=== PATIENT | female | born 2000 | race Caucasian/White ===

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

== ENCOUNTER → 2022-08-17 10:05 | Outpatient (BNVA) | payer MEDICAID, SELFPAY | PROVIDERS: PCP Nurse Practitioner Family; Visit Provider Nurse Practitioner Family | DX: J02.9 Acute pharyngitis, unspecified (principal) | CPT/HCPCS: 87071; 87880 ==

== ENCOUNTER → 2022-10-19 08:13 | Outpatient (BNVA) | payer MEDICAID, SELFPAY | PROVIDERS: PCP Nurse Practitioner Family; Visit Provider Podiatrist Foot & Ankle Surgery | DX: M79.672 Pain in left foot (principal); S93.622A Sprain of tarsometatarsal ligament of left foot, initial encounter; X58.XXXA Exposure to other specified factors, initial encounter | CPT/HCPCS: 73630 ==

== ENCOUNTER 2022-12-08 07:24 | Outpatient (CLI) | payer MEDICAID, SELFPAY ==
--- NOTE | 2022-12-08 08:00 | MR_ITS ---
WS: [id number] MRI LEFT FOOT without CONTRAST. COMPARISON: 07/12/2021 Multiplanar, multisequence imaging is performed without contrast. Significant improvement in appearance of the midfoot and the Lisfranc ligament since the prior examin ation. The interosseous and plantar component of the ligament best seen on the axial imaging. The shravan vargas band is best seen on the coronal sequence. There is no signal abnormality remaining within the li gament. No widening of the proximal first and second metatarsals. There is normal alignment in the mi dfoot. No fractures or marrow edema. No residual soft tissue edema. Small cyst just distal to the anterior calcaneal process and medial to the cuboid measures 5 x 8 mm. This may be a small ganglion. MR/MR foot LT wo con* [id number] IMPRESSION: 1. No residual marrow edema or edema within the Lisfranc ligament. 2. 3 components of the Lisfranc ligament are identified and appear normal by M RI. 3. Possible small ganglion measuring 5 x 8 mm distal to the anterior calcaneal process and medial to the cuboid.
== END 2022-12-08 07:25 | disposition home or self-care (01) ==
LOC: RAD 07:28
PROVIDERS: PCP Nurse Practitioner Family; Visit Provider Podiatrist Foot & Ankle Surgery
DX: M79.672 Pain in left foot (principal)
CPT/HCPCS: 73718

== ENCOUNTER 2023-01-31 06:00 | Outpatient (RCR) | payer MEDICAID, SELFPAY | END 2023-03-01 23:59 | disposition home or self-care (01) | LOC: SPT 06:00 | PROVIDERS: Visit Provider Podiatrist Foot & Ankle Surgery | DX: S93.622D Sprain of tarsometatarsal ligament of left foot, subsequent encounter (principal); X58.XXXD Exposure to other specified factors, subsequent encounter | CPT/HCPCS: 97035; 97110; 97140; 97161 ==

== ENCOUNTER 2023-03-02 06:00 | Outpatient (RCR) | payer MEDICAID, SELFPAY | END 2023-03-31 23:59 | disposition home or self-care (01) | LOC: SPT 06:00 | PROVIDERS: Visit Provider Podiatrist Foot & Ankle Surgery | DX: S93.622D Sprain of tarsometatarsal ligament of left foot, subsequent encounter (principal); X58.XXXD Exposure to other specified factors, subsequent encounter | CPT/HCPCS: 97110; 97140 ==

== ENCOUNTER → 2023-05-04 11:27 | Outpatient (BNVA) | payer MEDICAID, SELFPAY | PROVIDERS: Visit Provider Podiatrist Foot & Ankle Surgery | DX: S93.622D Sprain of tarsometatarsal ligament of left foot, subsequent encounter; X58.XXXD Exposure to other specified factors, subsequent encounter; M21.612 Bunion of left foot | CPT/HCPCS: 73630 ==

== ENCOUNTER 2023-05-19 08:36 | Day surgery (SDC) | payer MEDICAID, SELFPAY ==
[2023-05-19] VITALS (12 sets, daily range): BP systolic 85–122; BP diastolic 44–73; PULSE 57–83; RESP 14–16; TEMP 36.1–36.7; O2SAT 95–100
--- NOTE | 2023-05-19 | XR_ITS ---
WS: [id number] EXAMINATION: XR foot LT 2V [id number] REASON FOR EXAM: CHAIM PICS COMPARISON: 05/04/2023 ORDER DATE: 05/19/2023 12:00 AM TECHNIQUE: 3 views of the left foot were obtained. X-RAY FINDINGS: The C-arm views were obtained for intraoperative purposes.. IMPRESSION: As above
[2023-05-19] MEDS: CELEcoxib 200 mg Capsule 400 MG PO (09:31)
[2023-05-19] MEDS: sodium chloride 0.9% 1,000 ML 30 ML IV (09:31)
[2023-05-19] MEDS: gabapentin 300 mg Capsule PO (09:32)
[2023-05-19 09:40] LABS: OR HCG Qualitative Urine Negative (Negative)
--- NOTE | 2023-05-19 09:41 | W.PM.OPSUD ---
Surgery/Procedure H&P Update DATE OF PROCEDURE: May 19, 2023 DATE H&P PERFORMED: 05/04/23 H&P UPDATE INFORMATION: I have reviewed H&P completed within last 30 days, No changes to prior documentation and H&P is in [facility] [place] on date indicated CHANGES TO PREVIOUS DOCUMENTATION: none PREOP DIAGNOSIS: Left bunion. Left Lisfranc injury. PLANNED PROCEDURE: Operation Date: 05/19/23 10:10 Proposed Procedures p Bunionectomy Lapidus(Left) - Zach Blanton DPM s ?left Lapidus bunionectomy, and?Open reduction internal fixation left second tarsometatarsal joint, 39118, 33954, M21.612, S93.622D(Left) - Zach Blanton DPM
--- NOTE | 2023-05-19 10:00 | ANES.PREANE2 ---
Pre-Anesthetic Assessment Height/Weight: Height 1.55 m Weight 73.482 kg Temp Pulse Resp BP Pulse Ox O2 Del Method 98.1 F 70 16 122/63 98 Room Air 05/19/23 08:58 05/19/23 08:58 05/19/23 08:58 05/19/23 08:58 05/19/23 08:58 05/19/23 09:01 Preop Diagnosis: Left bunion. Left Lisfranc injury. Operation Date: 05/19/23 10:10 Proposed Procedures p Bunionectomy Lapidus(Left) - Zach Blanton DPM s ?left Lapidus bunionectomy, and?Open reduction internal fixation left second tarsometatarsal joint, 22065, 15651, M21.612, S93.622D(Left) - Zach Blanton DPM Familial anesthetic complications: none Was Beta Troy taken within 24 hours: N/A Was Clonidine taken within 24 hours: N/A Last intake: Intake Last Liquid Date 05/18/23 Last Liquid Time 22:00 Last Solid Date 05/18/23 Last Solid Time 19:00 Social No alcohol and No tobacco Exam alert, oriented x 3, clear to auscultation bilaterally and regular rate & rhythm Airway Submandibular: within normal limits Cervical ROM: within normal limits Mallampati: Class II Dentition: full History/ROS No significant history except as noted Anesthetic Plan ASA status: 1 Anesthesia: Choice Medications/Allergies Home Medications Medication Instructions Recorded Confirmed Last Taken Type epinephrine 0.3 mg/0.3 mL 0.3 mg (0.3 mL) IM Q4H PRN 02/08/23 05/18/23 Unknown Rx injection, auto-injector (EpiPen anaphylaxis #2 ea 2-Med) Allergies Allergy/AdvReac Type Severity Reaction Status Date / Time Sulfa (Sulfonamide Allergy Severe ALGY-Hives Verified 05/18/23 11:10 Antibiotics) shellfish derived Allergy ALGY-Anaphy Verified 05/18/23 11:10 laxis Current Medications Generic Name Dose Route Start Last Admin Trade Name Freq PRN Reason Stop Dose Admin Sodium Chloride 1,000 mls @ 30 mls/hr 05/19/23 08:45 05/19/23 09:31 Sodium Chloride 0.9% IV 05/20/23 08:44 30 mls/hr .Q24H KIM Administration PFSH Anesthesia Social History Smoking and tobacco status: never smoked Second hand smoke exposure: No Smoking risk assessment/counseling performed?: No Alcohol intake: never Desire information about alcohol rehabilitation?: No Counseling given: No Substance/Drug Use: never Desire information about substance/drug rehabilitation?: No Counseling given: No Adopted: No Highest education level completed: 11th Grade Pets and animals: No Female Reproductive History Date of last menstrual period: 05/07/23 Data Anesthesia Cardiac Studies: No Data to Display
[2023-05-19] MEDS: ceFAZolin 2,000 MG in sodium chloride 0.9% (plus) 50 ML 100 MG IV (10:39)
[2023-05-19] MEDS: BUPivacaine liposome 13.3 mg/mL SDV 10 mL 266 MG INJECTION (10:55)
[2023-05-19] MEDS: BUPivacaine 0.5% INJ 30 mL 20 ML INJECTION (10:55)
--- NOTE | 2023-05-19 12:03 | PM.OP ---
Operative Report Date of procedure: May 19, 2023 Pre-op diagnosis: Left bunion deformity. Left Lisfranc injury. Post-op diagnosis: Left bunion deformity. Post-op findings: Stability appreciated intraoperatively with loading and range of motion at the left second tarsometatarsal joint. Procedure done: Left Lapidus bunionectomy. CPT code 89253 Implants: [place] 3 mm headed screw [place] primary Lapidus arthrodesis plate with 3.5 mm locking and nonlocking screws 3-0 Vicryl, 4-0 Vicryl, 4-0 nylon 10 cc of Exparel, 10 cc of Marcaine 0.5% plain Specimens removed/disposition: none Pathology: None Surgeon: Zach Blanton D.P.M. Computer Processing Scheduler: [place] Estimated blood loss: 5 34 IV fluids: 0 Urine output: 0 Complications: None Brief History: Planning on first and possible second tarsometatarsal joint arthrodesis.? We will start with bunion correction with Lapidus bunionectomy and then assess instability at the second metatarsal and cuneiform joint.? May require ORIF versus arthrodesis.? I reviewed at length with the patient, the risks, potential complications, benefits, alternatives, expectations, and typical outcomes associated with the surgery. The risks and potential complications were explained in detail, including but not limited to infection, wound dehiscence or soft tissue complications, bleeding and hematoma, chronic edema, neuritis or nerve damage producing numbness or chronic pain, CRPS, failure to relieve pain or worsening pain, thick / painful / unsightly scar, limited motion / stiffness, malposition, delayed union, malunion, or nonunion, fracture, reaction to implants, anesthetic complications, venous thromboembolism, and deformity recurrence.? I discussed the notion of no regrets with the patient as it pertains to complications and outcomes. The patient seemed to understand the nature of the proposed care and required convalescence. They asked appropriate questions, answered to their satisfaction. They are aware no guarantees can be made as to a satisfactory outcome and they understand there may be other possible unforeseen complications or outcomes not listed here that will be treated accordingly if they arise. There were no written or implied guarantees given to the patient. They gave informed consent to proceed. Procedure: Under mild sedation the patient was brought to the operating room and placed onto the operating table in supine position. A timeout was performed. Anesthesia was then administered by the anesthesia service. Local anesthesia was injected by myself consisting of 20 cc of Exparel and 20 cc of Marcaine and a proximal male block fashion. Well-padded pneumatic tourniquet was applied to the left high calf. The left lower extremity was scrubbed, prepped and draped utilizing normal aseptic technique. The left foot and ankle were exanguinated with an Esmarch bandage and the tourniquet inflated to 250 mmHg. Attention was directed to the dorsal medial aspect of the left first tarsometatarsal joint where a linear longitudinal incision was made medial and parallel to the extensor hallucis longus tendon. Incision was made through skin with a #15 blade with dissection carried down through subcutaneous tissue to the layer of periosteum utilizing sharp and blunt technique. Care was taken to retract and preserve neurovascular and tendinous structures. All bleeders were ligated and cauterized as necessary. Periosteal incision was made and the base of the first metatarsal and distal articular surface of the medial cuneiform were denuded of the articular surface, irrigation was performed followed by fenestrating drill bit for subchondral drilling on power. Once the arthrodesis site was prepped utilizing standard AO technique oriented from distal dorsal to proximal plantar a homerun screw was inserted with excellent bony apposition and compression noted with reduction of the first intermetatarsal angle appreciated to be neutral and parallel to the second metatarsal without excessive shortening. Further fixation was performed at the dorsal medial aspect of the first tarsometatarsal arthrodesis site utilizing a [place] locking plate with 3.5 mm locking and nonlocking screws. AP, oblique and lateral views confirmed excellent placement of hardware, the 2 screws within the medial cuneiform extended into the intermediate cuneiform for additional stability, bony apposition and compression noted at the arthrodesis site, no hardware violated the navicular cuneiform joint. Once the first ray was stabilized and fixated in the bunion correction was noted to be anatomic in all 3 planes with excellent sesamoid position intraoperative fluoroscopy under live fluoroscopy stressing of the second tarsometatarsal joint was performed and there was no diastases appreciated at the first intermetatarsal space. No incongruity at the second tarsometatarsal joint or instability appreciated intraoperatively with loading and simulated weightbearing. For this reason additional fixation was not performed for the Lisfranc ligament or second tarsometatarsal joint. The incision was irrigated with copious amounts of sterile saline solution. The incision was then closed in a layered fashion. Periosteum reapproximated with 3-0 Vicryl. Subcutaneous tissue with 4-0 Vicryl and skin with 4-0 nylon. The incision was dressed with Adaptic, sterile 4 x 4, Kerlix and Cristobal wrap and a cam boot was applied. Tourniquet was deflated and a prompt hyperemic response was noted to the distal digits of the left foot. Patient tolerated the procedure and anesthesia well and was transferred to the PACU with vital signs stable and vascular status intact. Following a period of postoperative monitoring she will be discharged home is to remain nonweightbearing, may heel touch only for transfers with a cam boot to the left lower extremity. She is to elevate her her left foot while resting. I advised an 81 mg aspirin to be taken in the morning after surgery once daily until she resumes normal activity likely 6 weeks to help potentially reduce the risk of deep vein thrombosis.
[2023-05-19] MEDS: HYDROcodone-acetaminophen 10-325 mg Tablet 1 TAB PO (13:47)
--- NOTE | 2023-05-19 14:05 | ANE.PACU2 ---
Inpatient post-anesthesia follow up: Airway intact: Yes Vital signs: Temperature 97.3 F Pulse Rate 67 Respiratory Rate 16 Blood Pressure 104/57 Pulse Oximetry 99 Oxygen Delivery Me thod Room Air Oxygen Flow Rate 6 Fraction of Inspir ed Oxygen Hydration adequate: Yes Nausea and vomiting: No Pain level: 2 Mental status: Baseline
== END 2023-05-19 14:20 | disposition home or self-care (01) ==
PROVIDERS: Visit Provider Podiatrist Foot & Ankle Surgery
PROC: (CPT 28297; principal; 2023-05-19 10:10)
PROC: (CPT 28297; 2023-05-19 10:10)
DX: M21.612 Bunion of left foot (principal)
CPT/HCPCS: 28297; 73620; 76000; 81025; 84703; C1713; C9290; J0690; J1100; J1200; J2250; J2405; J2704; J3010; J3490; J7030

== ENCOUNTER → 2023-06-08 14:28 | Outpatient (BNVA) | payer MEDICAID, SELFPAY | PROVIDERS: Visit Provider Podiatrist Foot & Ankle Surgery | DX: Z98.890 Other specified postprocedural states (principal) | CPT/HCPCS: 73630 ==

== ENCOUNTER → 2023-06-15 13:23 | Outpatient (BNVA) | payer MEDICAID, SELFPAY | PROVIDERS: Visit Provider Podiatrist Foot & Ankle Surgery | DX: Z98.890 Other specified postprocedural states (principal) | CPT/HCPCS: 73630 ==

== ENCOUNTER → 2023-06-29 13:50 | Outpatient (BNVA) | payer MEDICAID, SELFPAY | PROVIDERS: Visit Provider Podiatrist Foot & Ankle Surgery | DX: Z48.89 Encounter for other specified surgical aftercare | CPT/HCPCS: 73630 ==

== ENCOUNTER → 2023-07-20 14:03 | Outpatient (BNVA) | payer MEDICAID, SELFPAY | PROVIDERS: Visit Provider Podiatrist Foot & Ankle Surgery | DX: Z98.890 Other specified postprocedural states (principal) | CPT/HCPCS: 73630 ==

== ENCOUNTER → 2023-08-10 14:11 | Outpatient (BNVA) | payer MEDICAID, SELFPAY | PROVIDERS: PCP Nurse Practitioner Family; Visit Provider Podiatrist Foot & Ankle Surgery | DX: Z98.890 Other specified postprocedural states (principal) | CPT/HCPCS: 73630 ==

== ENCOUNTER → 2023-09-14 13:22 | Outpatient (BNVA) | payer MEDICAID, SELFPAY | PROVIDERS: PCP Nurse Practitioner Family; Visit Provider Podiatrist Foot & Ankle Surgery | DX: Z98.890 Other specified postprocedural states (principal) | CPT/HCPCS: 73630 ==

== ENCOUNTER → 2023-11-09 14:15 | Outpatient (BNVA) | payer MEDICAID, SELFPAY | PROVIDERS: PCP Nurse Practitioner Family; Visit Provider Nurse Practitioner Family | DX: R53.83 Other fatigue (principal); R23.3 Spontaneous ecchymoses; R42 Dizziness and giddiness | CPT/HCPCS: 80053; 82306; 83540; 84443; 85025 ==

== ENCOUNTER → 2023-11-30 13:01 | Outpatient (BNVA) | payer MEDICAID, SELFPAY | PROVIDERS: PCP Nurse Practitioner Family; Visit Provider Podiatrist Foot & Ankle Surgery | DX: Z98.890 Other specified postprocedural states (principal) | CPT/HCPCS: 73630 ==